=== PATIENT | female | born 1955 | race Caucasian/White ===

== ENCOUNTER 2021-05-31 18:29 | Emergency (ER) | payer MEDICARE, OTHER ==
[~2021-05-31] VITALS: Ht 167.6 cm; Wt 75.3 kg
== END 2021-05-31 19:06 | disposition home or self-care (01) ==
LOC: ER 18:57
DX: H43.392 Other vitreous opacities, left eye (principal); Z85.3 Personal history of malignant neoplasm of breast
CPT/HCPCS: 99282